=== PATIENT | female | born 1990 | race Caucasian/White ===

== ENCOUNTER 2022-09-23 14:18 | Inpatient (IN) ==
[2022-09-23 16:21] LABS: Hematocrit (blood only) 40.8 % (34.1-44.9); Hemoglobin 14.1 g/dl (12.0-16.0); Mean Corpuscular Hemoglobin 28.4 pg (25.0-34.0); Mean Corpuscular Hgb Conc 34.6 g/dL (32.0-36.0); Mean Corpuscular Volume 82.1 fL (80.0-100.0); RDW Coefficient of Variation 13.8 % (11.5-14.5); RDW Standard Deviation 39.8 fL (36.4-46.3); Red Blood Count 4.97 M/uL (3.93-5.22); White Blood Count 9.72 K/ul (4.8-10.8)
[2022-09-23 16:38] LABS: Albumin Globulin Ratio 1.2 (0.9-2); Albumin Level 3.3 gm/dl (3.4-5.0); BUN Creatinine Ratio 11.4 (10-20); Bilirubin,Total 0.4 mg/dl (0.2-1.0); Calcium 9.1 mg/dl (8.5-10.1); Creatinine Clr Calc Pharmacy 175.7 ml/min; Est GFR (African American) 134.8 ml/min; Est GFR (Non-African American) 116.3 ml/min; Globulin 2.7 gm/dl (2.5-4.0); Potassium 3.8 mmol/L (3.5-5.1)
[2022-09-23 16:47] LABS: Basophils # (auto) 0.04 K/uL (0-0.2); Basophils % (auto) 0.4 %; Immature Granulocytes # (auto) 0.07 K/uL (0.00-0.02); Immature Granulocytes % (auto) 0.7 %; Lymphocytes # (auto) 2.51 K/uL (1.2-3.4); Lymphocytes % (auto) 25.8 %; Mean Platelet Volume 13.3 fL (9.4-12.3); Monocytes # (auto) 0.67 K/uL (0.24-0.82); Monocytes % (auto) 6.9 %; Neutrophils # (auto) 6.33 K/uL (1.4-6.5); Neutrophils % (auto) 65.2 %; Platelet Count 163 K/uL (130-400)
[2022-09-23 17:11] LABS: Creatinine Urine Random 118.1 mg/dl; Protein Creatinine Ratio Urine 0.2 (0-0.2); Total Protein Urine Random 19.4 mg/dl (0-11.9)
--- NOTE | 2022-09-23 17:15 | History & Physical Report ---
Date of Service September 23, 2022 Assessment & Plan (1) 37 weeks gestation of : (2) History of severe pre-eclampsia: (3) Previous delivery affecting , antepartum: Plan Discussed with patient concern that she will meet criteria for gestational htn. Discussed how diagnosis made. Likely proceed with delivery for which she plans repeat c/s with tubal. Will need to consider IV labetalol at this time, will get bp now. Labs thus far normal. She ate cheeseburger at noon. Will d/w anesth timeframe. Patient aware. No evidence of severe features by symptoms or labs but now may be developing severe range bps. History of Present Illness Chief Complaint: elevated bps Primary Care Provider: Natalie Winter 31yo at 37+wks ega sent from office with elevated bps. Patient was in office for her routine check up. Denies joseph, visual change. No ruq pain or n/v. No significant swelling. She had elevated bp and has prior complicated by preeclampsia requiring delivery at 33wks and so sent to L&D for further evaluation. Initial elevated bp in office was about 115pm. Patient on arrival here continues to deny complaints. PNC c/b 1. Prior complicated by preeclampsia with severe features, delivered at 33wks at [facility] 2. Prior c/s desires repeat c/s. 3. Desires tubal sterilization. 4. GDM on insulin. 5. H/o genital herpes, on valtrex. PNL rh pos, ri, gbs neg OBH: c/s, [facility] at 33wks G[facility]: nl paps Allergies Allergy/AdvReac Type Severity Reaction Status Date / Time No Known Allergies Allergy Verified 09/23/22 13:03 Home Medications Medication Instructions Recorded Confirmed Type prenat.vits,derrick,[id number] 1 tab PO DAILY 07/31/20 09/23/22 History escitalopram oxalate 10 mg tablet 10 mg PO DAILY 01/13/21 09/23/22 History (Lexapro) acetone (urine) test (Ketone Urine #50 ea 03/04/22 09/23/22 Rx Test strips) blood sugar diagnostic (Accu-Chek #150 ea 03/04/22 09/23/22 Rx Guide test strips) Dexcom G6 Cinetechnician (blood-glucose #1 ea 03/22/22 09/23/22 Rx meter,continuous) Dexcom G6 Sensor (blood-glucose #9 ea 03/22/22 09/23/22 Rx sensor) Dexcom G6 Transmitter #1 ea 03/22/22 09/23/22 Rx (blood-glucose transmitter) insulin detemir U-100 [Levemir 80 units subcut 07/27/22 09/23/22 History U-100 Insulin] aspirin 81 mg chewable tablet 81 mg PO DAILY 09/11/22 09/23/22 History valacyclovir 500 mg tablet 500 mg PO BID #60 tabs 09/14/22 09/23/22 Rx (Valtrex) Patient History Medical History (Updated 09/23/22 @ 17:12 by Manuela Lujan MD, FACOG) Abnormal biochemical finding on screening of mother Chlamydia as teenager Gestational diabetes mellitus (GDM) On insulin at night time. History of chicken pox as a child Obesity Situational anxiety on meds UTI (urinary tract infection) during Surgical History S/P arthroscopic surgery of right knee S/P section 2020- intolerance and failed induction- 33 weeks. S/P tonsillectomy and adenoidectomy S/P wisdom tooth extraction Family History Grandfather (Maternal) Cancer Diabetes Heart disease Osteoarthritis Grandmother (Maternal) Cancer Osteoarthritis Grandmother (Paternal) Cancer Osteoarthritis Grandfather (Paternal) Osteoarthritis Denies family history of Ovarian cancer Breast cancer Colorectal cancer Social History Smoking Status: Never smoker Hx Alcohol Use: No Hx Substance Use: No Preferred Language: [place] Communication Ability: Effective Sausage Inspector Required: No Beliefs That Will Affect Care: None marital status: marital status details: Bruno Ector (33) [phone] Current Living Situation: Spouse and Parent Current Living Situation Comment: lives with spouse, daughter, mother and grandfather, 4 dogs current occupational status: unemployed current occupation: homemaker Other Information That Helps Us Care for You: No Feels Safe at Home: Yes Safety Concerns: Feels Safe At This Time Assistive Devices: Contacts Review of Systems as per Subjective / HPI Physical Exam Constitutional: WD/WN, vitals as above Gastrointestinal (Abdomen): soft gravid nt no ruq or epig pain Musculoskeletal: tr edema nontender calves Neurologic: grossly normal DTRs +2 no clonus Psychiatric: A+Ox3, euthymic affect Genitourinary: OB Exam Monitor Tracing: + external FHT monitor used, + external uterine monitor used (no ctx), + category I and + normal FHT variability Results & Data ([facility]) Vital Signs (Past 12 Hours) Vital Signs Temp Pulse Resp BP 09/23/22 15:06 98.4 F 20 09/23/22 15:31 91 H 09/23/22 15:31 175/106 H 09/23/22 15:23 93 H 09/23/22 15:23 180/109 H 09/23/22 14:41 103 H 170/104 H Coding Level of Care Code None Diagnoses 37 weeks gestation of Z3A.37 History of severe pre-eclampsia Z87.59 Previous delivery affecting , antepartum O34.219
[2022-09-23] MEDS ORDERED: LABETALOL HCL IV 5 MG/ML 20ML IV STA ×3 (17:19→18:56)
[2022-09-23] MEDS ORDERED: LACTATED RINGER'S 500 ML IV ONE (17:23)
[2022-09-23] MEDS ORDERED: MoRPHine SULFATE PF 1 MG/ML 10 ML AMP/VIAL ONE (17:44)
--- NOTE | 2022-09-23 17:53 | Anesthesiology Consultation ---
Date of Service September 23, 2022 Assessment & Plan Chart Review Chart Review: Acceptable Risk for Surgery and Patient NOT seen in Pre Admission Testing Consults Requested none ASA ASA2E Proposed Anesthesia Anesthesia Type: Spinal Risk / Benefits Reviewed With: PT / POA / Parent / Guardian, Accepts Plan and Informed Consent Obtained History Height/Weight Height: 5 ft 11 in Weight: 130.635 kg Allergies Allergy/AdvReac Type Severity Reaction Status Date / Time No Known Allergies Allergy Verified 09/23/22 13:03 Medications Home Medications Medication Instructions Recorded Confirmed Last Taken prenat.vits,derrick,[id number] 1 tab PO DAILY 07/31/20 09/23/22 09/22/22 escitalopram oxalate 10 mg tablet 10 mg PO DAILY 01/13/21 09/23/22 09/23/22 (Lexapro) acetone (urine) test (Ketone Urine #50 ea 03/04/22 09/23/22 Unknown Test strips) blood sugar diagnostic (Accu-Chek #150 ea 03/04/22 09/23/22 Unknown Guide test strips) Dexcom G6 Digital Communications Manager (blood-glucose #1 ea 03/22/22 09/23/22 Unknown meter,continuous) Dexcom G6 Sensor (blood-glucose #9 ea 03/22/22 09/23/22 Unknown sensor) Dexcom G6 Transmitter #1 ea 03/22/22 09/23/22 Unknown (blood-glucose transmitter) insulin detemir U-100 [Levemir 80 units subcut 07/27/22 09/23/22 09/22/22 U-100 Insulin] aspirin 81 mg chewable tablet 81 mg PO DAILY 09/11/22 09/23/22 09/23/22 valacyclovir 500 mg tablet 500 mg PO BID #60 tabs 09/14/22 09/23/22 09/22/22 (Valtrex) Active Medications Generic Name Dose Route Start Last Admin Trade Name Freq PRN Reason Stop Dose Admin Lactated Ringer's 1,000 mls @ 125 mls/hr 09/23/22 18:30 09/23/22 17:36 Lr IV 10/23/22 18:29 999 mls/hr .Q8H JUAN Administration Past Medical History Medical History (Updated 09/23/22 @ 17:12 by Manuela Lujan MD, FACOG) Abnormal biochemical finding on screening of mother Chlamydia as teenager Gestational diabetes mellitus (GDM) On insulin at night time. History of chicken pox as a child Obesity Situational anxiety on meds UTI (urinary tract infection) during Exercise / Class Metabolic Activity II 4-5 Yardwork/Stairs/Walk up hill Past Family History Family History Grandfather (Maternal) Cancer Diabetes Heart disease Osteoarthritis Grandmother (Maternal) Cancer Osteoarthritis Grandmother (Paternal) Cancer Osteoarthritis Grandfather (Paternal) Osteoarthritis Denies family history of Ovarian cancer Breast cancer Colorectal cancer Past Surgical History Surgical History S/P arthroscopic surgery of right knee S/P section 2020- intolerance and failed induction- 33 weeks. S/P tonsillectomy and adenoidectomy S/P wisdom tooth extraction Past Anesthesia History No Hx of Anesthesia Complications and No Family Hx of Anesthesia Complications History of PONV No Hx of PONV and No Hx of Motion Sickness Social History Smoking Status: Never smoker Hx Alcohol Use: No Hx Substance Use: No substance use type: does not use Review of Systems Constitutional: as per Subjective / HPI Eyes: as per Subjective / HPI Ear, Nose, Mouth, Throat: as per Subjective / HPI Respiratory: as per Subjective / HPI Cardiovascular: as per Subjective / HPI Gastrointestinal: as per Subjective / HPI Genitourinary (Female): as per Subjective / HPI Musculoskeletal: as per Subjective / HPI Integumentary: as per Subjective / HPI Neurologic: as per Subjective / HPI Psychiatric: as per Subjective / HPI Endocrine: as per Subjective / HPI Hematologic / Lymphatic: as per Subjective / HPI Allergy / Immunological: as per Subjective / HPI Physical Exam Vital Signs Last Vital Signs Temp 36.9 C 09/23/22 15:06 Pulse 76 09/23/22 17:47 Resp 20 09/23/22 15:06 BP 172/95 H 09/23/22 17:47 Constitutional + obese ENMT Mouth: no TMJ abnormality Thyromental Distance: > or= 3.5 Finger Breadths Mallampati Class: II Neck normal visual inspection Respiratory normal respiratory effort Cardiovascular Rate/Rhythm: regular rate and regular rhythm Musculoskeletal Spine: + limited cervical ROM Neurologic moves all extremities Psychiatric Orientation: alert and oriented x 3 Testing Laboratory Results 09/23/22 16:04 10/28/22 16:04
[2022-09-23] MEDS ORDERED: diphenhydrAMINE 50 MG/ML VIAL IV PRN (17:55)
[2022-09-23] MEDS ORDERED: MoRPHine SULFATE 2 MG/ML CARP IV PRN (17:55)
[2022-09-23] MEDS ORDERED: NALBUPHINE HCL INJ 10 MG/ML AMP IV PRN (17:55)
[2022-09-23] MEDS ORDERED: METOCLOPRAMIDE HCL 20 MG in SODIUM CHLORIDE 0.9% 50 ML IV PRN (17:55)
[2022-09-23] MEDS ORDERED: NALOXONE HCL 0.4 MG/1 ML VIAL/CARP IV PRN (17:55)
[2022-09-23] MEDS ORDERED: MEPERIDINE HCL 25 MG/ML CARP/VIAL IV PRN (17:55)
[2022-09-23] MEDS ORDERED: MoRPHine SULFATE PF 1 MG/ML 10 ML AMP/VIAL INT SPINAL ONE (17:55)
[2022-09-23] MEDS ORDERED: ePHEDrine sulfate 50 MG/ML AMP IV PRN (17:55)
[2022-09-23] MEDS ORDERED: diphenhydrAMINE Capsule 25 MG CAP PO PRN (17:55)
[2022-09-23] MEDS ORDERED: NALOXONE HCL 1 MG in SODIUM CHLORIDE 0.9% 1000ML 1,000 ML IV PRN (17:55)
[2022-09-23] MEDS ORDERED: KETOROLAC 30 MG/ML VIAL IV PRN (17:55)
[2022-09-23] MEDS ORDERED: HYDROmorphone INJ 0.5 MG/0.5 ML SYR IV PRN (17:55)
[2022-09-23] MEDS ORDERED: ONDANSETRON INJ 2 MG/ML 2 ML VIAL IV PRN (17:55)
[2022-09-23] MEDS ORDERED: NALOXONE HCL 0.08 MG in SYRINGE 1.8 ML IV PRN (17:55)
[2022-09-23] MEDS ORDERED: LACTATED RINGER'S 500 ML IV PRN (17:55)
[2022-09-23] MEDS ORDERED: NO NARCOTICS OR SEDATIVES SCH (18:00)
[2022-09-23] MEDS ORDERED: DC INTRASPINAL MORPHINE SCH (18:00)
[2022-09-23] MEDS ORDERED: SODIUM CHLORIDE 0.9% 1000ML 1,000 ML IV SCH (18:00)
[2022-09-23] MEDS ORDERED: CITRIC ACID/SODIUM CITRATE 15 ML UDC ONE (18:03)
[2022-09-23] MEDS ORDERED: LACTATED RINGER'S 1,000 ML IV SCH (18:30)
--- NOTE | 2022-09-23 20:31 | Post Operative Brief Note ---
PG Immediate Post Op with CF Date of Surgery September 23, 2022 Pre & Post Diagnosis Operation Date: 09/23/22 17:30 Pre-Op Diagnosis: 1. 37 week IUP 2. Gestational HTN 3. Prior section 4. Desires repeat section 5. Desires sterilization Post-Op Diagnosis: 1. 37 week IUP 2. Gestational HTN 3. Prior section 4. Desires repeat section 5. Desires sterilization I identified the patient and participated in the time-out.: Yes Procedure Operation Date: 09/23/22 17:30 Actual Procedures p Repeat Low Transverse Section Bilateral distal salpingectomies Surgeon Manuela Lujan MD, FACOG Mri Specialist RN Estimated Blood Loss 800 Findings Consistent with Post-Op Diagnosis (viable male apgars pending. normal uterus tubes and ovaries bilaterally. ) Fluids 1200 Specimens Specimen Description: 1. Cord Blood 2. Placenta- Hold 3. Left fallopian tube 4. Right fallopian tube Drains Kohler Catheter (placed after spinal anesthesia without difficulty for clear yellow urine) Anesthesia Type Spinal Complications none Disposition Accompanied Patient To Recovery: No Disposition: L&D
[2022-09-23] MEDS ORDERED: MAG SULFATE 4GM BOLUS FROM BAG IV ONE (20:40)
[2022-09-23] MEDS ORDERED: MIDAZOLAM HCL 1 MG/ML 2ML VIAL ONE (20:47)
--- NOTE | 2022-09-23 20:52 | Operative Report ---
PG Post Operative Report Pre & Post Diagnosis Operation Date: 09/23/22 17:30 Pre-Op Diagnosis: 1. 37 week IUP 2. Gestational HTN 3. GDM on insulin 4. Obesity 5. Prior section, Desires repeat section 6. Desires sterilization Post-Op Diagnosis: 1. 37 week IUP 2. Gestational HTN 3. GDM on insulin 4. Obesity 5. Prior section, Desires repeat section 6. Desires sterilization I identified the patient and participated in the time-out.: Yes Procedure Operation Date: 09/23/22 17:30 Actual Procedures 1. Repeat Low Transverse Section 2. Bilateral Distal salpingectomies Surgeon Manuela Lujan MD, FACOG Sinter Machine Operator RN Estimated Blood Loss 800 Findings Consistent with Post-Op Diagnosis (viable male apgars pending. normal uterus tubes and ovaries bilaterally. ) Fluids 1200 Specimens cord blood, right fallopian tube, left fallopian tube Drains caballero Anesthesia Type Spinal Complications none Disposition Accompanied Patient To Recovery: No Disposition: L&D Indications 31yo at 37wks with gestational hypertension requiring delivery. Prior section and desires tubal sterilization. See H&P for more details. Description of Procedure The patient was taken to the operating room and identified. After adequate anesthesia was obtained, she was placed in the supine position with a leftward tilt on the operating table and prepped and draped in the usual sterile fashion. A caballero catheter had already been placed. The knife was used to create a Pfannensteil skin incision that was carried down to the underlying layer of fascia. The fascia was nicked in the midline and this opening was extended laterally using Esquivel scissors. Mike clamps were placed on the superior and inferior aspect of the fascial incision tenting it upward and the underlying rectus muscles were dissected off the overlying fascia both sharply and bluntly using Esquivel scissors. The rectus muscles were bluntly in the midline. The peritoneal cavity was bluntly entered into. This opening was stretched. The bladder blade was placed. The vesicouterine peritoneum was elevated and opened up into and the bladder flap was created digitally and bladder blade was replaced. The knife was used to create a hysterotomy and this opening was stretched. The operators hand was placed through the hysterotomy and the bladder blade was removed. The head was elevated but the hysterotomy needed to be extended with bandage scissors on the left. A kiwi vacuum was applied to cephalic and the head was flexed and with fundal pressure the head was delivered. The shoulders and body were rapidly delivered. The cord was clamped and cut and the infant's mouth and nares were bulb suction. The was handed off to the awaiting pediatricians. Cord blood was obtained. The placenta was manually expressed. The uterus was exteriorized and cleared of all clots and debris. Dilute IV Pitocin was begun. The uterine tone was improving. The hysterotomy was closed in a running interlocking fashion using 0 Vicryl. T he hysterotomy was hemostatic. Attention was turned to the left fallopian tube that was followed out to its fimbriated end. The tube was elevated and using the ligasure the fimbriated end of tube to mid portion of tube was undermined at the mesosalpinx and tube was then transected. The specimen was sent. The right fallopian tube was identified to its fimbriated end, elevated, and transected in a similar fashion. The specimen was sent. The pelvis was suctioned of any blood and fluid. The uterus was returned to the abdomen. The gutters were cleared of all clots and debris. The hysterotomy was reinspected and noted to be hemostatic, the tubal sites were also inspected and noted to be hemostatic. There was slight oozing at bladder flap and azeem was applied. The fascia was then closed in running fashion using 0 Vicryl. The subcutaneous fat was copiously irrigated and reapproximated using 2-0 chromic. The skin was closed in a subcuticular fashion using 4-0 monocryl. At this point the procedure was terminated. The patient was transferred to the recovery room in stable condition. All sponge, lap and needle counts are correct x2. I attest to the content of the Intraoperative Record and any orders documented therein. Any exceptions are noted below. OB Procedure Charges [id number] Add on Tubal for C/S
[2022-09-23] MEDS ORDERED: IBUPROFEN 600 MG TAB PO PRN (21:11)
[2022-09-23] MEDS ORDERED: MAGNESIUM HYDROXIDE SUSP 30 ML UDC PO PRN (21:11)
[2022-09-23] MEDS ORDERED: HYDROCORTISONE ACETATE 25 MG SUPP PR PRN (21:11)
[2022-09-23] MEDS ORDERED: DIPHTHERIA/TETANUS/PERTUSSIS 0.5 ML SYR/VIAL IM ONE (21:11)
[2022-09-23] MEDS ORDERED: SENNA 8.6 MG TAB PO PRN (21:11)
[2022-09-23] MEDS ORDERED: BENZOCAINE 20% AER SPR 82.5 GM CAN EXT PRN (21:11)
[2022-09-23] MEDS: MAGNESIUM SULFATE / WTR 40 GM/1,000 ML BAG IV SCH (21:55)
[2022-09-23] MEDS: SIMETHICONE 80 MG CHEW PO SCH (22:38)
[2022-09-23] MEDS: DOCUSATE SODIUM 100 MG CAP PO SCH (22:38)
[2022-09-23] MEDS: OXYTOCIN 20 UNITS in LACTATED RINGER'S 1,000 ML IV SCH (22:50)
--- NOTE | 2022-09-24 05:36 | Obstetrical Progress Note ---
Date of Service September 24, 2022 Assessment & Plan (1) 37 weeks gestation of : (2) Delivery by section: Plan stable, cont on magnesium pp for 24hr, which is about 8pm. bps are improved so far. no sx. cbc pending. routine care otherwise. good urine output. Subjective Voiding: caballero catheter in place Diet Tolerance:: clear liquids Lochia:: Small Feeding Type:: bottle feeding still in bed, duramorph orders active. denies complaints. no joseph or visual change. no ruq pain. no n/v. sips of fluids. mouth is dry. holding baby. Constitutional: + as per Subjective / HPI Physical Exam Constitutional WD/WN, vitals as above Respiratory normal respiratory effort, lungs clear to auscultation Cardiovascular Rate/Rhythm: regular rate and regular rhythm Gastrointestinal (Abdomen) Inspection/Auscultation: abdomen normal to inspection Percussion/Palpation: abdomen soft Fundus firm 1cm down Dressing c/d/i Musculoskeletal nt calves tr edema Neurologic grossly normal Psychiatric A+Ox3, euthymic affect Results & Data ([facility]) Vital Signs (Past 12 Hours) Vital Signs Temp Pulse Resp BP Pulse Ox 09/24/22 05:02 16 09/24/22 04:01 16 99 09/24/22 04:01 16 09/24/22 03:16 16 96 09/24/22 02:00 18 98 09/24/22 02:00 98.4 F 18 09/24/22 02:00 18 09/24/22 01:00 16 97 09/24/22 01:00 16 09/24/22 00:00 18 100 09/24/22 00:00 18 09/23/22 23:00 18 98 09/23/22 23:00 18 09/23/22 22:45 98.2 F 18 09/23/22 22:15 18 09/23/22 21:46 18 09/23/22 21:45 18 09/23/22 21:35 18 09/23/22 21:25 18 09/23/22 21:15 18 09/23/22 21:05 18 09/23/22 20:55 18 09/23/22 20:45 98.2 F 18 09/24/22 05:30 88 96 09/24/22 05:25 96 H 98 09/24/22 05:20 91 H 96 09/24/22 05:15 89 96 09/24/22 05:10 93 H 96 09/24/22 05:05 89 96 09/24/22 05:00 90 96 09/24/22 04:55 96 H 98 09/24/22 04:50 99 H 98 09/24/22 04:49 91 H 137/77 09/24/22 04:45 99 H 97 09/24/22 04:40 91 H 97 09/24/22 04:35 101 H 98 09/24/22 04:30 95 H 98 09/24/22 04:25 92 H 98 09/24/22 04:20 98 H 99 09/24/22 04:15 89 99 09/24/22 04:10 94 H 98 09/24/22 04:05 92 H 98 09/24/22 04:00 109 H 99 09/24/22 03:55 97 H 99 09/24/22 03:50 104 H 98 09/24/22 03:49 83 161/83 H 09/24/22 03:45 82 96 09/24/22 03:40 87 96 09/24/22 03:35 84 96 09/24/22 03:30 85 96 09/24/22 03:25 85 96 09/24/22 03:20 85 97 09/24/22 03:15 83 96 09/24/22 03:10 84 97 09/24/22 03:05 84 97 09/24/22 03:00 84 96 09/24/22 02:55 81 98 09/24/22 02:50 79 98 09/24/22 02:49 80 155/87 H 09/24/22 02:45 81 97 09/24/22 02:40 83 97 09/24/22 02:35 82 97 09/24/22 02:30 85 97 09/24/22 02:25 89 97 09/24/22 02:20 103 H 98 09/24/22 02:15 104 H 98 09/24/22 02:10 99 H 98 09/24/22 02:05 92 H 97 09/24/22 02:00 98 H 98 09/24/22 01:55 100 H 98 09/24/22 01:50 96 H 98 09/24/22 01:49 83 158/90 H 09/24/22 01:45 89 97 09/24/22 01:40 88 98 09/24/22 01:35 97 H 98 09/24/22 01:30 85 96 09/24/22 01:25 86 96 09/24/22 01:20 84 98 09/24/22 01:15 82 96 09/24/22 01:10 94 H 97 09/24/22 01:05 83 96 09/24/22 01:00 93 H 97 09/24/22 00:55 80 97 09/24/22 00:50 82 97 09/24/22 00:49 78 156/89 H 09/24/22 00:45 88 98 09/24/22 00:40 81 98 09/24/22 00:35 83 98 09/24/22 00:30 83 98 09/24/22 00:25 81 99 09/24/22 00:20 86 99 09/24/22 00:15 87 99 09/24/22 00:10 86 100 09/24/22 00:05 99 H 100 09/24/22 00:00 99 09/24/22 00:00 83 09/24/22 00:00 83 155/82 H 09/23/22 23:55 100 09/23/22 23:55 85 09/23/22 23:50 99 09/23/22 23:50 78 09/23/22 23:45 100 09/23/22 23:45 87 09/23/22 23:40 100 09/23/22 23:40 79 09/23/22 23:35 100 09/23/22 23:35 85 09/23/22 23:30 100 09/23/22 23:30 80 09/23/22 23:25 99 09/23/22 23:25 80 09/23/22 23:20 99 09/23/22 23:20 73 09/23/22 23:15 100 09/23/22 23:15 73 09/23/22 23:10 100 09/23/22 23:10 74 09/23/22 23:05 100 09/23/22 23:05 76 09/23/22 23:00 100 09/23/22 23:00 75 09/23/22 22:55 100 09/23/22 22:55 81 09/23/22 22:50 100 09/23/22 22:50 74 09/23/22 22:45 100 09/23/22 22:45 75 09/23/22 22:46 71 09/23/22 22:46 173/89 H 09/23/22 22:40 100 09/23/22 22:40 81 09/23/22 22:35 100 09/23/22 22:35 77 09/23/22 22:36 69 09/23/22 22:36 171/88 H 09/23/22 22:30 100 09/23/22 22:30 74 09/23/22 22:26 74 09/23/22 22:26 172/88 H 09/23/22 22:25 100 09/23/22 22:25 73 09/23/22 22:20 100 09/23/22 22:20 75 09/23/22 22:15 100 09/23/22 22:15 73 09/23/22 22:16 69 09/23/22 22:16 152/86 H 09/23/22 22:10 100 09/23/22 22:10 73 09/23/22 22:05 100 09/23/22 22:05 74 09/23/22 22:06 71 09/23/22 22:06 154/81 H 09/23/22 22:00 100 09/23/22 22:00 77 09/23/22 21:56 71 09/23/22 21:56 159/80 H 09/23/22 21:55 100 09/23/22 21:55 75 09/23/22 21:50 100 09/23/22 21:50 70 09/23/22 21:45 99 09/23/22 21:45 76 09/23/22 21:46 73 09/23/22 21:46 137/76 09/23/22 21:40 100 09/23/22 21:40 71 09/23/22 21:35 100 09/23/22 21:35 76 09/23/22 21:36 71 09/23/22 21:36 151/86 H 09/23/22 21:30 100 09/23/22 21:30 76 09/23/22 21:26 71 09/23/22 21:26 153/85 H 09/23/22 21:25 100 09/23/22 21:25 74 09/23/22 21:20 100 09/23/22 21:20 76 09/23/22 21:15 100 09/23/22 21:15 77 09/23/22 21:16 75 09/23/22 21:16 145/79 H 09/23/22 21:10 100 09/23/22 21:10 78 09/23/22 21:06 68 09/23/22 21:06 137/76 09/23/22 21:05 100 09/23/22 21:05 70 09/23/22 21:00 98 09/23/22 21:00 82 09/23/22 20:55 100 09/23/22 20:55 73 09/23/22 20:56 73 09/23/22 20:56 147/82 H 09/23/22 20:50 100 09/23/22 20:50 77 09/23/22 20:46 77 09/23/22 20:46 145/80 H 09/23/22 20:45 100 09/23/22 20:45 78 09/23/22 19:12 82 09/23/22 19:12 166/89 H 09/23/22 19:07 77 09/23/22 19:07 172/97 H 09/23/22 19:02 71 09/23/22 19:02 165/92 H 09/23/22 18:47 20 09/23/22 18:47 20 09/23/22 18:57 75 09/23/22 18:57 164/93 H 09/23/22 18:00 22 09/23/22 18:00 22 09/23/22 18:52 68 09/23/22 18:52 171/92 H 09/23/22 18:47 71 09/23/22 18:47 179/98 H 09/23/22 18:42 78 09/23/22 18:42 175/94 H 09/23/22 18:37 68 09/23/22 18:37 176/98 H 09/23/22 18:32 70 09/23/22 18:32 170/100 H 09/23/22 18:27 77 09/23/22 18:27 172/97 H 09/23/22 18:22 78 09/23/22 18:22 165/90 H 09/23/22 18:17 78 09/23/22 18:17 161/88 H 09/23/22 18:15 81 09/23/22 18:15 173/93 H 09/23/22 18:12 74 09/23/22 18:12 174/96 H 09/23/22 18:07 75 09/23/22 18:07 177/97 H 09/23/22 18:03 79 09/23/22 18:03 186/101 H 09/23/22 17:58 75 09/23/22 17:58 186/106 H 09/23/22 17:52 82 09/23/22 17:52 178/101 H 09/23/22 17:47 76 09/23/22 17:47 172/95 H 09/23/22 17:41 82 09/23/22 17:41 178/100 H
[2022-09-24] MEDS ORDERED: CITRIC ACID/SODIUM CITRATE 15 ML UDC PO SCH (06:00)
[2022-09-24 06:10] LABS: Hematocrit (blood only) 35.6 % (34.1-44.9); Mean Corpuscular Hemoglobin 27.9 pg (25.0-34.0); Mean Corpuscular Hgb Conc 33.7 g/dL (32.0-36.0); Mean Corpuscular Volume 82.8 fL (80.0-100.0); RDW Coefficient of Variation 13.9 % (11.5-14.5); RDW Standard Deviation 40.7 fL (36.4-46.3); White Blood Count 12.54 K/ul (4.8-10.8)
[2022-09-24 06:21] LABS: Basophils # (auto) 0.04 K/uL (0-0.2); Basophils % (auto) 0.3 %; Eosinophils # (auto) 0.03 K/uL (0-0.50); Eosinophils % (auto) 0.2 %; Immature Granulocytes # (auto) 0.07 K/uL (0.00-0.02); Immature Granulocytes % (auto) 0.6 %; Lymphocytes # (auto) 1.56 K/uL (1.2-3.4); Lymphocytes % (auto) 12.4 %; Mean Platelet Volume 13.3 fL (9.4-12.3); Monocytes # (auto) 0.76 K/uL (0.24-0.82); Monocytes % (auto) 6.1 %; Neutrophils # (auto) 10.08 K/uL (1.4-6.5); Neutrophils % (auto) 80.4 %; Platelet Count 120 K/uL (130-400)
[2022-09-24] MEDS: OXYTOCIN 20 UNITS in LACTATED RINGER'S 1,000 ML IV SCH (06:37)
[2022-09-24] MEDS ORDERED: FERROUS SULFATE 325 MG TAB PO SCH (08:00)
[2022-09-24] MEDS ORDERED: PRENATAL VITAMIN 1 TAB PO SCH (08:00)
[2022-09-24] MEDS: DOCUSATE SODIUM 100 MG CAP PO SCH ×3 (08:10→21:02)
[2022-09-24] MEDS: SIMETHICONE 80 MG CHEW PO SCH ×5 (08:36→21:02)
[2022-09-24] MEDS: ESCITALOPRAM OXALATE 10 MG TAB PO SCH (08:36)
[2022-09-24] MEDS ORDERED: Nursing to Pharmacy Communication SCH (09:00)
[2022-09-24] MEDS ORDERED: ONDANSETRON INJ 2 MG/ML 2 ML VIAL IV PRN ×2 (11:55→19:57)
[2022-09-24] MEDS ORDERED: diphenhydrAMINE Capsule 25 MG CAP PO PRN ×2 (11:55→19:57)
[2022-09-24] MEDS ORDERED: PROMETHAZINE HCL 25 MG in SODIUM CHLORIDE 0.9% 50 ML IV PRN ×2 (11:55→19:57)
[2022-09-24] MEDS ORDERED: oxyCODONE/ACETAMINOPHEN 5mg/325mg TAB PO PRN ×2 (11:55→19:57)
[2022-09-24] MEDS ORDERED: diphenhydrAMINE 50 MG/ML VIAL IV PRN ×2 (11:55→19:57)
[2022-09-24] MEDS ORDERED: ZOLPIDEM TARTRATE 5 MG TAB PO PRN (11:55)
[2022-09-24] MEDS: MAGNESIUM SULFATE / WTR 40 GM/1,000 ML BAG IV SCH (14:00)
[2022-09-24] MEDS: LACTATED RINGER'S 1,000 ML IV SCH ×2 (19:42→20:02)
[2022-09-24] MEDS ORDERED: MAGNESIUM HYDROXIDE SUSP 30 ML UDC PO PRN (19:57)
[2022-09-24] MEDS ORDERED: SENNA 8.6 MG TAB PO PRN (19:57)
[2022-09-24] MEDS ORDERED: DIPHTHERIA/TETANUS/PERTUSSIS 0.5 ML SYR/VIAL IM ONE (19:57)
[2022-09-24] MEDS ORDERED: HYDROCORTISONE ACETATE 25 MG SUPP PR PRN (19:57)
[2022-09-24] MEDS ORDERED: BENZOCAINE 20% AER SPR 82.5 GM CAN EXT PRN (19:57)
[2022-09-24] MEDS ORDERED: bisacodyL 5 MG TABEC PO SCH (20:00)
[2022-09-24] MEDS ORDERED: LACTATED RINGER'S 1,000 ML IV SCH (20:00)
[2022-09-24] MEDS: IBUPROFEN 600 MG TAB PO PRN (21:53)
[2022-09-25 06:42] LABS: Basophils # (auto) 0.04 K/uL (0-0.2); Basophils % (auto) 0.4 %; Eosinophils # (auto) 0.13 K/uL (0-0.50); Eosinophils % (auto) 1.3 %; Hematocrit (blood only) 35.7 % (34.1-44.9); Hemoglobin 12.1 g/dl (12.0-16.0); Immature Granulocytes # (auto) 0.04 K/uL (0.00-0.02); Immature Granulocytes % (auto) 0.4 %; Lymphocytes # (auto) 2.28 K/uL (1.2-3.4); Lymphocytes % (auto) 22.4 %; Mean Corpuscular Hemoglobin 28.3 pg (25.0-34.0); Mean Corpuscular Hgb Conc 33.9 g/dL (32.0-36.0); Mean Corpuscular Volume 83.6 fL (80.0-100.0); Mean Platelet Volume 12.9 fL (9.4-12.3); Monocytes # (auto) 0.68 K/uL (0.24-0.82); Monocytes % (auto) 6.7 %; Neutrophils # (auto) 7.01 K/uL (1.4-6.5); Neutrophils % (auto) 68.8 %; Platelet Count 138 K/uL (130-400); RDW Coefficient of Variation 14.2 % (11.5-14.5); RDW Standard Deviation 42.1 fL (36.4-46.3); Red Blood Count 4.27 M/uL (3.93-5.22); White Blood Count 10.18 K/ul (4.8-10.8)
--- NOTE | 2022-09-25 08:33 | Obstetrical Progress Note ---
Date of Service September 25, 2022 Assessment & Plan (1) Delivery by section: Postoperative day #2 the patient is doing well she is ambulating tolerating an oral diet her pain is controlled her bleeding is minimal she has no extremity pain her blood pressures have been creeping up we will start labetalol 100 mg p.o. twice daily with the plan of discharge tomorrow Subjective Ambulation: ambulating normally Voiding: no voiding problems Passing Gas:: Yes Diet Tolerance:: regular diet Lochia:: Small Physical Exam Constitutional WD/WN, vitals as above well developed and well nourished Respiratory normal respiratory effort; no respiratory distress, no retractions and does not use accessory muscles Cardiovascular RRR, no murmur, no edema Chest (Breasts) normal inspection/palpation of breasts Breast: normal inspection of breasts, normal inspection of axillae, normal palpation of breasts and normal palpation of axillae Gastrointestinal (Abdomen) normal bowel sounds, soft, nontender, no hepatosplenomegaly Neurologic awake; not confused Results & Data ([facility]) Vital Signs (Past 12 Hours) Vital Signs Temp Pulse Pulse Resp BP BP Pulse Ox 09/25/22 03:05 97.9 F 83 18 152/95 H 09/24/22 23:00 99.0 F 98 H 18 146/93 H 97 09/24/22 21:55 18 09/24/22 21:03 16 09/24/22 20:49 96 H 142/75 H O2 Del Method 09/25/22 03:05 09/24/22 23:00 Room Air 09/24/22 21:55 09/24/22 21:03 09/24/22 20:49
[2022-09-25] MEDS ORDERED: LABETALOL HCL 100 MG TAB ONE (08:39)
[2022-09-25] MEDS: SIMETHICONE 80 MG CHEW PO SCH ×4 (08:41→20:19)
[2022-09-25] MEDS: FERROUS SULFATE 325 MG TAB PO SCH (08:41)
[2022-09-25] MEDS: PRENATAL VITAMIN 1 TAB PO SCH (08:41)
[2022-09-25] MEDS: DOCUSATE SODIUM 100 MG CAP PO SCH ×2 (08:42→20:21)
[2022-09-25] MEDS: ESCITALOPRAM OXALATE 10 MG TAB PO SCH (09:53)
[2022-09-25] MEDS: LABETALOL HCL 100 MG TAB PO SCH ×2 (09:53→20:21)
[2022-09-25] MEDS ORDERED: bisacodyL 5 MG TABEC PO SCH (20:00)
[2022-09-25] MEDS: IBUPROFEN 600 MG TAB PO PRN (20:21)
[2022-09-25] MEDS ORDERED: bisacodyL 10 MG SUPP PR PRN (20:44)
--- NOTE | 2022-09-26 05:52 | Obstetrical Progress Note ---
Date of Service September 26, 2022 Assessment & Plan (1) Delivery by section: Plan s/p POD#3: Vital signs reviewed, BP 135/78 this morning. Continue Labetalol O+, GBS negative, Rubella immune Encourage ambulation Continue regular diet, treat pain as needed Encourage breast feeding Discussed discharge plan to D/C today Admission and Anticipated Discharge Date Admission Date: September 23, 2022 Supervising Physician Co-Signing Physician Notes Resident Physician Supervision Note: I was present with Dr. Mcpherson during the history and exam. I discussed the case with the resident and agree with the findings and plan as documented in the note. Any exceptions or clarifications are listed here: [None] Documented By: Jeniffer Richardson MD, FACOG Subjective Felipa is a 31 y/o female who is POD #3 following delivery at 37 1/7 weeks. Patient also underwent bilateral distal salpingectomies after c- section. Her was complicated by gestational diabetes (required insulin at nights) and gestational HTN. Has a history of preeclampsia with severe features in her prior . Yesterday she was started on labetalol PO BID as her BP was slowly increasing. She reports feeling well overall this morning. Denies abdominal cramping & pain well managed on analgesics. Voiding without issue. Tolerating meals overnight and able to ambulate some. Endorses passing gas. Has some persistent lochia with some improvement this morning. Currently formula feeding. Review of Systems Constitutional: no fever, no chills and no sweats Respiratory: no cough, no dyspnea and no wheezing Cardiovascular: no chest pain, no palpitations and no calf pain Genitourinary: no dysuria Neurologic: no headache(s) Physical Exam Constitutional: WD/WN, vitals as above no acute distress Respiratory: no respiratory distress Auscultation: lungs clear to auscultation bilaterally; no rales, no rhonchi and no wheezes Cardiovascular: RRR, no murmur, no edema Extremities: no calf tenderness and no edema Negative Dev's sign bilaterally. Gastrointestinal (Abdomen): Inspection/Auscultation: normal bowel sounds Genitourinary: Uterine fundus firm, palpable below the umbilicus. Incision site clean and healing well. Results & Data ([facility]) Vital Signs (Past 12 Hours) Vital Signs Temp Pulse Resp BP Pulse Ox 10/30/22 20:20 37.3 C 90 18 156/97 H 97 Resident Activity Tracking Resident Involvement: Resident Care Provided Care Provided: OB Delivery
[2022-09-26] MEDS: DOCUSATE SODIUM 100 MG CAP PO SCH (09:29)
[2022-09-26] MEDS: FERROUS SULFATE 325 MG TAB PO SCH (09:29)
[2022-09-26] MEDS: SIMETHICONE 80 MG CHEW PO SCH (09:29)
[2022-09-26] MEDS: PRENATAL VITAMIN 1 TAB PO SCH (09:29)
[2022-09-26] MEDS: IBUPROFEN 600 MG TAB PO PRN (09:30)
[2022-09-26] MEDS: LABETALOL HCL 100 MG TAB PO SCH (09:30)
[2022-09-26] MEDS: ESCITALOPRAM OXALATE 10 MG TAB PO SCH (09:30)
[2022-09-26] MEDS ORDERED: bisacodyL 10 MG SUPP PR PRN (19:51)
--- NOTE | 2022-09-30 08:44 | Discharge Summary ---
Date of Service Day of admission: September 23, 2022 Day of discharge: September 26, 2022 Admission HPI Per Admitting Provider 31yo at 37+wks ega sent from office with elevated bps. Patient was in office for her routine check up. Denies joseph, visual change. No ruq pain or n/v. No significant swelling. She had elevated bp and has prior complicated by preeclampsia requiring delivery at 33wks and so sent to L&D for further evaluation. Initial elevated bp in office was about 115pm. Patient on arrival here continues to deny complaints. PNC c/b 1. Prior complicated by preeclampsia with severe features, delivered at 33wks at [facility] [place] 2. Prior c/s desires repeat c/s. 3. Desires tubal sterilization. 4. GDM on insulin. 5. H/o genital herpes, on valtrex. PNL rh pos, ri, gbs neg [facility]: c/s, [facility] [place] at 33wks G[facility]: nl paps Discharge Data Consultations 09/23/22 17:21 Consult Anesthesiology Stat Procedures Performed Operation Date: 09/23/22 17:30 Actual Procedures p Repeat Low Transverse Section s Distal salpingectomies for sterilization Hospital Course (1) Delivery by section: (2) Gestational HTN: (3) 37 weeks gestation of : Plan Patient met criteria for diagnosis of gestational hypertension and desired repeat c/s and tubal ligation. The patient underwent the above stated procedure without incident and her postoperative course and recovery was uncomplicated. On her postoperative day #3 she was tolerating a regular diet, voiding spontaneously, ambulating without problem and was using oral meds for adequate pain control. Her postoperative hemoglobin was 12.1. She was given written and verbal discharge instructions and told to followup in office at 6wks. She was given appropriate pain medicine prescriptions. She was started on labetalol bid due to persistent elevated bps. Coding Level of Care Code None Diagnoses Delivery by section Gestational HTN O13.9 37 weeks gestation of Z3A.37
== END 2022-09-26 12:55 | disposition home or self-care (01) | DRG 785 ==
LOC: OPB 14:18 → 4S1 14:19 → 4E2 09-24 22:35
PROC: M.PPTLD (2022-09-23 17:30)